=== PATIENT | male | born 1980 | race Hispanic/Latino ===

== ENCOUNTER 2021-09-10 16:49 | Emergency (ER) | payer SELFPAY ==
[2021-09-10 17:26] LABS: Urine Blood Negative (Negative); Urine Glucose Negative (Negative); Urine Protein Negative (Negative); Urine Specific Gravity 1.025 (1.005-1.030); Urine pH 5.5 (5.0-7.0)
[2021-09-10 18:29] LABS: Urine Bacteria <20 /HPF (NONE SEEN); Urine RBC <5 /HPF (NONE SEEN)
--- NOTE | 2021-09-10 19:43 | RAD REPORT ---
EXAM DESCRIPTION: US - Scrotum Testicles - 09/10/2021 7:29 pm CLINICAL HISTORY: right testicle pain Pain and swelling COMPARISON: No comparisons FINDINGS: The right testicle 3.8 x 2.6 x 2.2 cm. No intratesticular masses or evidence of testicular torsion. The left testicle 4.2 x 2.2 x 2.1 cm. There is a small hypoechoic lesion seen in the substance of the left testicle measuring 3 x 2 mm. No evidence left testicular torsion. Both epididymides are normal in size and appearance. No pathologic fluid collections. IMPRESSION: No evidence of testicular torsion. Small 3 x 2 cm hypoechoic lesion in the parenchyma of the left testicle. This lesion warrants close i nterval follow-up evaluation with sonography in 3 months.
[2021-09-10] MEDS ORDERED: NA CHLORIDE 0.9% 1,000 ML ONE (19:53)
[2021-09-10] MEDS ORDERED: KETOROLAC 30 MG/ML INJ ONE (19:53)
[2021-09-10 20:22] LABS: Absolute Lymphocytes (CBC) 1.8 K/uL (0.7-4.9); Basophils % 0.2 % (0-1.3); Hematocrit 46.1 % (39.6-49.0); Lymphocytes % 19.1 % (15.3-44.8); MPV 8.2 fL (7.6-11.3); RBC Red Blood Cell Count 5.07 M/uL (4.33-5.43)
[2021-09-10 20:47] LABS: ALT/SGPT 36 U/L (12-78); AST/SGOT 13 U/L (15-37); Albumin 3.9 g/dL (3.4-5.0); Alkaline Phosphatase 64 U/L (45-117); BUN Blood Urea Nitrogen 11 mg/dL (7-18); Bicarbonate 24 mmol/L (21-32); Bilirubin Direct 0.1 mg/dL (0-0.2); Bilirubin Total 0.6 mg/dL (0.2-1.0); Glucose Level 124 mg/dL (74-106); Lipase 65 U/L (73-393); Potassium 3.8 mmol/L (3.5-5.1); Protein, Total 7.8 g/dL (6.4-8.2); Sodium Level 141 mmol/L (136-145)
--- NOTE | 2021-09-10 21:36 | RAD REPORT ---
EXAM DESCRIPTION: CTAbdomen Pelvis W Contrast - 09/10/2021 9:20 pm CLINICAL HISTORY: Abdominal pain. ABD PAIN COMPARISON: No comparisons TECHNIQUE: Biphasic CT imaging of the abdomen and pelvis was performed with 100 ml non-ionic IV cont rast. All CT scans are performed using dose optimization technique as appropriate and may include automated exposure control or mA/KV adjustment according to patient size. FINDINGS: The lung bases are clear. The liver, spleen, pancreas, adrenal glands and kidneys are within normal limits. No bowel obstruction, free air, free fluid or abscess. The appendix is normal. No evidence of signi ficant lymphadenopathy. No suspicious bony findings. IMPRESSION: No acute intra-abdominal or pelvic finding.
--- NOTE | 2021-09-10 21:51 | ER ---
Nurse's Notes [facility] Name: Jevon Kelly Age: 41 yrs Sex: Male : 1980 Arrival Date: 09/10/2021 Time: 16:53 Bed 19 Private MD: Diagnosis: Lower abdominal pain, unspecified Presentation: 09/10 17:05 Chief complaint: Patient's son or daughter states: Wednesday they took him to the doctor tw2 and he was having pain in his stomach. they gave him pills. then they went again yesterday and they gave him two more pills. and he still doesn't feel good. he says his left arm is bothering him and he is having trouble urinating. Coronavirus screen: vomiting. Client presents with at least one sign or symptom that may indicate coronavirus-19. Standard/surgical mask placed on the client. Provider contacted for isolation considerations. Ebola Screen: Patient denies travel to an Ebola-affected area in the 21 days before illness onset. Initial Sepsis Screen: Does the patient meet any 2 criteria? No. Patient's initial sepsis screen is negative. Does the patient have a suspected source of infection? No. Patient's initial sepsis screen is negative. Risk Assessment: Do you want to hurt yourself or someone else? Patient reports no desire to harm self or others. Onset of symptoms was September 10, 2021. 17:05 Method Of Arrival: Ambulatory tw2 17:05 Acuity: CAYLA 3 tw2 Triage Assessment: 17:10 General: Appears in no apparent distress. uncomfortable, Behavior is calm, cooperative, tw2 appropriate for age. Pain: Complains of pain in abdomen. Historical: - Allergies: 17:07 olmesartan; "trouble breathing"; tw2 - Home Meds: 17:09 None [Active]; tw2 - PMHx: 17:10 None; tw2 - PSHx: 17:09 None; tw2 - Immunization history:: Client reports receiving the 2nd dose of the Covid vaccine. - Social history:: Smoking status: Patient denies any tobacco usage or history of. Screenin:22 Abuse screen: Denies threats or abuse. Nutritional screening: No deficits noted. tw2 Tuberculosis screening: No symptoms or risk factors identified. Fall Risk None identified. Assessment: 17:55 General: Appears in no apparent distress. uncomfortable, Behavior is calm, cooperative. vg1 Pain: Complains of pain in suprapubic area, right lower quadrant and left lower quadrant Pain currently is 7 out of 10 on a pain scale. Pain began a week ago. Neuro: Level of Consciousness is awake, alert, obeys commands, Oriented to person, place, time, situation. Cardiovascular: Patient's skin is warm and dry. Respiratory: Airway is patent Respiratory effort is even, unlabored. GI: Reports nausea, vomiting. : Reports burning with urination, since for about a week Pt states Right testicular swelling. EENT: No signs and/or symptoms were reported regarding the EENT system. Derm: Skin is intact, is healthy with good turgor. Musculoskeletal: Circulation, motion, and sensation intact. 17:55 Reassessment: Pt stated urinary pain has been going on for about a week. Stated saw PCP vg1 on Wednesday09/06/21 and was given Metronidazole and Cipro. Pt states went back to PCP yesterday bc pain came back worse and was given another medication. 19:50 Reassessment: No changes from previously documented assessment. Patient and/or family kc4 updated on plan of care and expected duration. Pain level reassessed. Patient is alert, oriented x 3, equal unlabored respirations, skin warm/dry/pink. General: Appears uncomfortable, well groomed, Behavior is calm, cooperative, appropriate for age, Denies fever, feeling ill, fatigue, chills. Pain: Complains of pain in suprapubic area, scrotum Pain currently is 8 out of 10 on a pain scale. at worst was 10 out of 10 on a pain scale. level that patient reports is acceptable is 2 out of 10 on a pain scale. Quality of pain is described as burning, aching, sharp, throbbing, pulsating, Pain began 2-3 days ago. Neuro: Level of Consciousness is awake, alert, obeys commands, Oriented to Reports. Cardiovascular: No deficits noted. Capillary refill < 3 seconds Patient's skin is warm and dry. Respiratory: Airway is patent Respiratory effort is even, unlabored, Respiratory pattern is regular, symmetrical. GI: No deficits noted. Abdomen is flat, Bowel sounds present X 4 quads. Reports nausea, Pain is 8 out of 10 on a pain scale. : Reports burning with urination, swollen scrotum. EENT: No signs and/or symptoms were reported regarding the EENT system. Derm: No deficits noted. No signs and/or symptoms reported regarding the dermatologic system. Skin is intact, is healthy with good turgor. Vital Signs: 17:05 BP 147 / 97; Pulse 83; Resp 17; Temp 97.8(TE); Pulse Ox 99% on R/A; Weight 99.79 kg; tw2 Pain 8/10; 19:15 BP 142 / 92; Pulse 78; Resp 18; Pulse Ox 100% on R/A; Pain 8/10; kc4 20:15 BP 135 / 82; Pulse 82; Resp 20; Temp 98.8; Pulse Ox 99% on R/A; Pain 8/10; kc4 21:15 BP 146 / 96; Pulse 80; Resp 20; Pulse Ox 99% on R/A; Pain 5/10; kc4 21:50 BP 144 / 86; Pulse 98; Resp 18; Temp 98.7(O); Pulse Ox 100% on R/A; Pain 0/10; kc4 ED Course: 16:53 Patient arrived in ED. ds1 17:07 Triage completed. tw2 17:07 Arm band placed on. tw2 17:42 Bed in low position. Call light in reach. Adult w/ patient. tw2 18:03 Francisco J Hayes PA is PHCP. cp 18:03 Emilio Marley MD is Attending Physician. cp 19:20 Hellen Bryson is Primary Nurse. kc4 19:29 US Scrotum Testicles In Process Unspecified. EDMS 19:50 Inserted saline lock: 20 gauge in right antecubital area, using aseptic technique. kc4 Blood collected. 19:56 Basic Metabolic Panel Sent. kc4 19:56 CBC with Diff Sent. kc4 19:56 Hepatic Function Sent. kc4 19:56 Lipase Sent. kc4 19:56 Urine Culture Sent. kc4 19:56 Urine Microscopic Only Sent. kc4 21:20 CT Abd/Pelvis - IV Contrast Only In Process Unspecified. EDMS 21:50 Andrew Ireland MD is Referral Physician. cp 22:24 No provider procedures requiring assistance completed. IV discontinued, intact, kc4 bleeding controlled, No redness/swelling at site. Pressure dressing applied. Administered Medications: 19:55 Drug: NS 0.9% 1000 ml Route: IV; Rate: 1 bolus; Site: right antecubital; kc4 21:55 Follow up: IV Status: Completed infusion kc4 19:56 Drug: Ketorolac 15 mg Route: IVP; Site: right antecubital; kc4 20:00 Follow up: Response: No adverse reaction; Pain is decreased kc4 Outcome: 21:51 Discharge ordered by MD. cp 22:24 Discharged to home ambulatory, with significant other. kc4 22:24 Condition: stable 22:24 Discharge instructions given to patient, significant other, Instructed on discharge instructions, follow up and referral plans. medication usage, Demonstrated understanding of instructions, follow-up care, medications. 22:31 Patient left the ED. kc4 Signatures: Dispatcher [employer] EDOK Ileana Moses ds1 Francisco J Hayes PA PA cp Wise, Tara RN RN tw2 Ivy Chinchilla RN RN vg1 Hellen Bryson kc4
--- NOTE | 2021-09-10 21:52 | EDPHYS ---
Physician Documentation [facility] Name: Jevon Kelly Age: 41 yrs Sex: Male : 1980 Arrival Date: 09/10/2021 Time: 16:53 Bed 19 Private MD: ED Physician Emilio Marley HPI: 09/10 18:35 This 41 yrs old Male presents to ER via Ambulatory with complaints of Urinary cp Problem. 18:35 The patient presents with urinary symptoms, urinary tract infection. cp 18:35 Onset: The symptoms/episode began/occurred last week. Associated signs and symptoms: cp Pertinent positives: abdominal pain, Pertinent negatives: constipation, diarrhea, dysuria, fever, vomiting. Severity of symptoms: in the emergency department the symptoms are unchanged, despite home interventions. Patient presents to ED with c/o lower abdomen pain that started last week. Patient reports being seen at local clinic and diagnosed with uti this past Wednesday. Has been taking prescribed antibiotics cipro and metronidazole and reports pain continues. Historical: - Allergies: 17:07 olmesartan; "trouble breathing"; tw2 - Home Meds: 17:09 None [Active]; tw2 - PMHx: 17:10 None; tw2 - PSHx: 17:09 None; tw2 - Immunization history:: Client reports receiving the 2nd dose of the Covid vaccine. - Social history:: Smoking status: Patient denies any tobacco usage or history of. ROS: 18:40 Constitutional: Negative for body aches, chills, fever, poor PO intake. cp 18:40 Eyes: Negative for injury, pain, redness, and discharge. cp 18:40 Cardiovascular: Negative for chest pain. 18:40 Respiratory: Negative for cough, shortness of breath, wheezing. 18:40 Abdomen/GI: Positive for of the lower abdomen, Negative for vomiting, diarrhea, constipation. 18:40 : Positive for testicular pain Negative for flank pain, penile discharge, penile pain. 18:40 Neuro: Negative for altered mental status, headache, weakness. 18:40 All other systems are negative. Exam: 18:45 Constitutional: The patient appears in no acute distress, alert, awake, non-toxic, well cp developed, well nourished, obese. 18:45 Head/Face: Normocephalic, atraumatic. cp 18:45 Eyes: Periorbital structures: appear normal, Conjunctiva: normal, no exudate, no injection, Sclera: no appreciated abnormality, Lids and lashes: appear normal, bilaterally. 18:45 ENT: External ear(s): are unremarkable, Nose: is normal, Mouth: Lips: moist, Oral mucosa: moist, Posterior pharynx: Airway: no evidence of obstruction, patent. 18:45 Chest/axilla: Inspection: normal, Palpation: is normal, no crepitus, no tenderness. 18:45 Cardiovascular: Rate: normal, Rhythm: regular. 18:45 Respiratory: the patient does not display signs of respiratory distress, Respirations: normal, no use of accessory muscles, no retractions, labored breathing, is not present, Breath sounds: are clear throughout, no decreased breath sounds, no stridor, no wheezing. 18:45 Abdomen/GI: Inspection: abdomen appears normal, Bowel sounds: active, all quadrants, Palpation: soft, in all quadrants, mild abdominal tenderness, in the suprapubic area, rebound tenderness, is not appreciated, involuntary guarding, is not appreciated. 18:45 : Male external genitalia: swelling, is not appreciated, tenderness, is not appreciated. 18:45 Skin: cellulitis, is not appreciated, no rash present. Vital Signs: 17:05 BP 147 / 97; Pulse 83; Resp 17; Temp 97.8(TE); Pulse Ox 99% on R/A; Weight 99.79 kg; tw2 Pain 8/10; 19:15 BP 142 / 92; Pulse 78; Resp 18; Pulse Ox 100% on R/A; Pain 8/10; kc4 20:15 BP 135 / 82; Pulse 82; Resp 20; Temp 98.8; Pulse Ox 99% on R/A; Pain 8/10; kc4 21:15 BP 146 / 96; Pulse 80; Resp 20; Pulse Ox 99% on R/A; Pain 5/10; kc4 21:50 BP 144 / 86; Pulse 98; Resp 18; Temp 98.7(O); Pulse Ox 100% on R/A; Pain 0/10; kc4 MDM: 18:09 Patient medically screened. cp 19:00 Differential diagnosis: nonspecific abdominal pain, appendicitis, UTI, prostatitis, cp urethritis. 21:50 Data reviewed: vital signs, nurses notes, lab test result(s), radiologic studies, CT cp scan, ultrasound. 21:50 Counseling: I had a detailed discussion with the patient and/or guardian regarding: the cp historical points, exam findings, and any diagnostic results supporting the discharge/admit diagnosis, lab results, radiology results, to return to the emergency department if symptoms worsen or persist or if there are any questions or concerns that arise at home. Response to treatment: the patient's symptoms have markedly improved after treatment, and as a result, I will discharge patient. Special discussion: Based on the patient's Hx, exam, and Dx evaluation, there is no indication for emergent surgery or inpatient Tx. It is understood by the patient/guardian that if the Sx's persist or worsen they need to return immediately for re-evaluation. 09/10 17:26 Order name: Urine Dipstick-Ancillary; Complete Time: 18:04 EDMS 09/10 21:39 Interpretation: Normal except: UESTR Trace. 09/10 18:04 Order name: Urine Microscopic Only 09/10 18:05 Order name: Urine Culture 09/10 18:29 Order name: Urine Microscopic Only; Complete Time: 18:36 EDMS 09/10 18:31 Order name: Basic Metabolic Panel; Complete Time: 21:38 cp 09/10 21:38 Interpretation: Normal except: CL 109; GLUC 124. 09/10 18:31 Order name: CBC with Diff; Complete Time: 21:38 cp 09/10 21:38 Interpretation: Normal except: INDU% 74.0. 09/10 18:31 Order name: Hepatic Function; Complete Time: 21:38 09/10 21:38 Interpretation: Normal except: AST 13; GLOB 3.9; A/G 1.0. 09/10 18:31 Order name: Lipase; Complete Time: 21:38 cp 09/10 18:31 Order name: IV Saline Lock; Complete Time: 19:56 cp 09/10 18:31 Order name: Labs collected and sent; Complete Time: 19:56 cp 09/10 18:31 Order name: US Scrotum Testicles; Complete Time: 20:22 cp 09/10 18:36 Order name: CT Abd/Pelvis - IV Contrast Only; Complete Time: 21:38 cp Administered Medications: 19:55 Drug: NS 0.9% 1000 ml Route: IV; Rate: 1 bolus; Site: right antecubital; kc4 21:55 Follow up: IV Status: Completed infusion kc4 19:56 Drug: Ketorolac 15 mg Route: IVP; Site: right antecubital; kc4 20:00 Follow up: Response: No adverse reaction; Pain is decreased kc4 Disposition Summary: 09/10/21 21:51 Discharge Ordered Location: Home cp Problem: new cp Symptoms: have improved cp Condition: Stable cp Diagnosis - Lower abdominal pain, unspecified cp Followup: cp - With: Andrew Ireland MD - When: 1 week - Reason: pain continues Discharge Instructions: - Discharge Summary Sheet cp - Abdominal Pain, Adult cp Forms: - Medication Reconciliation Form cp - Thank You Letter cp - Antibiotic Education cp - Prescription Opioid Use cp Addendum: 09/14/2021 13:56 Co-signature as Attending Physician, Emilio Marley MD I agree with the assessment and r n plan of care. Attestation: The patient's history, exam findings, diagnostics, and a summary of any interventions or procedures was reviewed in detail with Francisco J WRIGHT. Signatures: Dispatcher [employer] EDEmilio Galvan MD MD rn Page, Corey, PA PA cp Carolee Pimentel RN RN tw2 Hellen Bryson kc4
[2021-09-10 23:09] VITALS: BP 144/86; TEMP 98.7; O2SAT 100
== END 2021-09-10 22:31 | disposition home or self-care (01) ==
LOC: ER 16:49
DX: R10.30 Lower abdominal pain, unspecified (principal)
CPT/HCPCS: 36415; 74177; 76870; 80048; 80076; 81003; 81015; 83690; 85025; 87086; 87088; 96361; 96374; 99284; J7030; Q9967

== ENCOUNTER 2021-10-16 07:50 | Emergency (ER) | payer SELFPAY ==
--- OUTSIDE RECORDS SUMMARY | 2021-10-16 07:53 | XMS REPORT | Continuity of Care Document ---
:1980 Author Organization [facility] t Address [address] [place] [address] Care Team Providers Name Role Phone Pcp, Does Not Have A Primary Care Physician Darren ZAMORA Attending Clinician Unavailable Darren Zamora DO Attending Clinician Doctor Unassigned, Name Attending Clinician Unavailable DESTINY Attending Clinician Unavailable Vaccine, Rosendo Uriosteguii Attending Clinician Unavailable Fuentes VACUUM PAN OPERATOR Attending Clinician Darren ZAMORA Admitting Clinician Unavailable DESTINY Admitting Clinician Unavailable Problems Condition Condition Condition Status Onset Resolution Last Treating Co mments Source Name Details Category Date Date Treatment Clinician Date Obesity Obesity Disease Active 2015-11 Univers (BMI (BMI 1-29 ity of 30-39.9) 30-39.9) 00:00: [place] 00 [facility] Allergies, Adverse Reactions, Alerts Allergy Allergy Status Severity Reaction(s) Onset Inactive Treating Comm ents Source Name Type Date Date Clinician NO KNOWN Drug Active Univers ALLERGIE Class ity of S [facility] Social History Social Habit Start Date Stop Date Quantity Comments Source Exposure to Not sure [facility] SARS-CoV-2 (event) Medica l Branch Sex Assigned At [birth year] [facility]00 [facility] Smoking Status Start Date Stop Date Source Unknown if ever smoked [facility] Medications Ordered Filled Start Stop Current Ordering Indication Dosage Frequency Signature Comments Components Source Medication Medication Date Date Medication? Clinician (SIG) Name Name ketorolac 2020-11- No 30mg 30 mg, Unive rs (TORADOL) 1-18 11-18 Slow IV ity of injection 15:30: 14:26 Push, [place] 30 mg 00 :00 ONCE, 1 Medical dose, On Branch Manjula 10/02/21 at 0930, DONAL
[facility] approving Restricted medication : MAXIMO ZAMORARA Banks iohexol 2020-11- No [id number] 100mL 100 mL, U nivers (OMNIPAQUE 0-30 10-30 Intravenou it y of 350 21:17: 21:30 s, ONCE, 1 [place] BULK-100 00 :00 dose, On Medical mL) Sat Branch injection 09/13/21 100 mL at 1630, Routine ondansetron 2020-11- No 4mg 4 mg, Slow Univers (ZOFRAN 0-30 10-30 IV Push, ity of (PF)) 20:30: 20:25 ONCE, 1 [place] injection 4 00 :00 dose, On Medi lisset mg Sat Branch 09/13/21 at 1530, DONAL ondansetron 2020-11 Yes [id number] 4mg Take 1 Univers 4 mg tablet 0-30 tablet by ity of 00:00: mouth [place] 00 every 8 Medical (eight) Branch hours as needed for Nausea and Vomiting (N/V). dicyclomine 2020-11 Yes [id number] 10mg Take 1 Univers 10 mg 0-30 capsule by ity of capsule 00:00: mouth 4 [place] 00 (four) Medical times Branch daily. ondansetron 2020-11 Yes [id number] 4mg Take 1 Univers 4 mg tablet 0-30 tablet by ity of 00:00: mouth [place] 00 every 8 Medical (eight) Branch hours as needed for Nausea and Vomiting (N/V). dicyclomine 2020-11 Yes [id number] 10mg Take 1 Univers 10 mg 0-30 capsule by ity of capsule 00:00: mouth 4 [place] 00 (four) Medical times Branch daily. ondansetron 2020-11 Yes [id number] 4mg Take 1 Univers 4 mg tablet 0-30 tablet by ity of 00:00: mouth [place] 00 every 8 Medical (eight) Branch hours as needed for Nausea and Vomiting (N/V). dicyclomine 2020-11 Yes [id number] 10mg Take 1 Univers 10 mg 0-30 capsule by ity of capsule 00:00: mouth 4 [place] 00 (four) Medical times Branch daily. traMADOL 2015-11 Yes 50mg Take 1 Univers (ULTRAM) 50 1-29 tablet by ity of mg tablet 00:00: mouth [place] 00 every 6 Medical (six) Branch hours as needed (pain). erythromyci 2015-11 Yes .5[in_u Place 0.5 Univers n 1-29 s] Inches in ity of (ILOTYCIN) 00:00: left eye 4 [place] mg/gram 00 (four) Medical (0.5 %) times Branch ophthalmic daily. ointment Continue until you follow up with eye doctor. traMADOL 2015-11 Yes 50mg Take 1 Univers (ULTRAM) 50 1-29 tablet by ity of mg tablet 00:00: mouth [place] 00 every 6 Medical (six) Branch hours as needed (pain). erythromyci 2015-11 Yes .5[in_u Place 0.5 Univers n 1-29 s] Inches in ity of (ILOTYCIN) 00:00: left eye 4 [place] 5 mg/gram 00 (four) Medical (0.5 %) times Branch ophthalmic daily. ointment Continue until you follow up with eye doctor. traMADOL 2015-11 Yes 50mg Take 1 Univers (ULTRAM) 50 1-29 tablet by ity of mg tablet 00:00: mouth [place] 00 every 6 Medical (six) Branch hours as needed (pain). erythromyci 2015-11 Yes .5[in_u Place 0.5 Univers n 1-29 s] Inches in ity of (ILOTYCIN) 00:00: left eye 4 [place] 5 mg/gram 00 (four) Medical (0.5 %) times Branch ophthalmic daily. ointment Continue until you follow up with eye doctor. traMADOL 2015-11 Yes 50mg Take 1 Univers (ULTRAM) 50 1-29 tablet by ity of mg tablet 00:00: mouth [place] 00 every 6 Medical (six) Branch hours as needed (pain). erythromyci 2015-11 Yes .5[in_u Place 0.5 Univers n 1-29 s] Inches in ity of (ILOTYCIN) 00:00: left eye 4 [place] 5 mg/gram 00 (four) Medical (0.5 %) times Branch ophthalmic daily. ointment Continue until you follow up with eye doctor. traMADOL 2015-11 Yes 50mg Take 1 Univers (ULTRAM) 50 1-29 tablet by ity of mg tablet 00:00: mouth [place] 00 every 6 Medical (six) Branch hours as needed (pain). erythromyci 2015-11 Yes .5[in_u Place 0.5 Univers n 1-29 s] Inches in ity of (ILOTYCIN) 00:00: left eye 4 [place] 5 mg/gram 00 (four) Medical (0.5 %) times Branch ophthalmic daily. ointment Continue until you follow up with eye doctor. Immunizations Ordered Filled Immunization Date Status Comments [facility] e Immunization Name Name SARS-COV-2 COVID-19 2021-08-14 Completed Unive rsity of PFIZER VACCINE 00:00:00 [facility] SARS-COV-2 COVID-19 2021-08-14 Completed Unive rsity of PFIZER VACCINE 00:00:00 [facility] SARS-COV-2 COVID-19 2021-08-14 Completed Unive rsity of PFIZER VACCINE 00:00:00 [facility] SARS-COV-2 COVID-19 2021-08-14 Completed Unive rsity of PFIZER VACCINE 00:00:00 [facility] SARS-COV-2 COVID-19 2021-07-24 Completed Unive rsity of PFIZER VACCINE 00:00:00 [facility] SARS-COV-2 COVID-19 2021-07-24 Completed Unive rsity of PFIZER VACCINE 00:00:00 [facility] SARS-COV-2 COVID-19 2021-07-24 Completed Unive rsity of PFIZER VACCINE 00:00:00 [facility] SARS-COV-2 COVID-19 2021-07-24 Completed Unive rsity of PFIZER VACCINE 00:00:00 [facility] SARS-COV-2 COVID-19 2021-07-24 Completed Unive rsity of PFIZER VACCINE 00:00:00 [facility] Vital Signs Vital Name Observation Time Observation Value Comments Source Systolic blood 2021-10-02 15:00:00 126 mm[Hg] Univer sity of pressure [facility] Diastolic blood 2021-10-02 15:00:00 90 mm[Hg] Unive rsity of pressure [facility] Heart rate 2021-10-02 15:00:00 83 /min Universi ty of [facility] Oxygen saturation in 2021-10-02 15:00:00 95 /min University of Arterial blood by [facility] Pulse oximetry Branch Body temperature 2021-10-02 14:13:00 37.06 [facility]ly [facility] Respiratory rate 2021-10-02 14:13:00 18 /min [facility] Body weight 2021-10-02 14:13:00 99.791 kg Universi ty [facility] BMI 2021-10-02 14:13:00 32.47 kg/m2 Universi ty [facility] Systolic blood 2021-09-13 23:30:12 140 mm[Hg] Univer sity of pressure [facility] Diastolic blood 2021-09-13 23:30:12 87 mm[Hg] Unive rsity of pressure [facility] Heart rate 2021-09-13 23:30:12 70 /min Universi ty [facility] Body temperature 2021-09-13 23:30:12 37 [facility] ersity of [facility] Respiratory rate 2021-09-13 23:30:12 16 /min [facility] Oxygen saturation in 2021-09-13 23:30:12 100 /min University of Arterial blood by [facility] Pulse oximetry Branch Body weight 2021-09-13 18:55:00 99.791 kg Universi ty [facility] BMI 2021-09-13 18:55:00 32.47 kg/m2 Universi [facility] Procedures Procedure Date / Time Performed Performing Clinician Sourc e CT ABDOMEN PELVIS WO 2021-10-02 14:45:08 Ann Zamora [facility] CONTRAST [facility] Branch LIPASE 2021-10-02 14:26:00 Ann Zamora [facility] COMP. METABOLIC PANEL 2021-10-02 14:26:00 Ann Zamora [facility] ([id number]) [facility] CBC WITH DIFF 2021-10-02 14:25:00 Ann Zamora [facility] URINALYSIS 2021-10-02 14:25:00 Ann Zamora [facility] NOTICE OF PRIVACY 2021-10-02 14:05:10 Doctor Unassigned, No Univ [facility] PRACTICES Name Medical Branch CONSENT/REFUSAL FOR 2021-10-02 14:04:54 Doctor Unassigned, No Un iversity of [place] DIAGNOSIS AND Name Medical Branch TREATMENT CT ABDOMEN PELVIS W 2021-09-13 21:27:44 Florencio Dixon [facility] CONTRAST [facility] Branch URINALYSIS 2021-09-13 20:27:00 Destiny [facility] EXTRA TUBE URINE 2021-09-13 20:27:00 Destiny [facility] CULTURE [facility] Branch XR CHEST 1 VW 2021-09-13 19:33:00 Destiny [facility] LIPASE 2021-09-13 19:26:00 Destiny [facility] TROPONIN I 2021-09-13 19:26:00 Destiny [facility] COMP. METABOLIC PANEL 2021-09-13 19:26:00 Florencio Dixon [facility] ([id number]) Medical Branch CBC WITH DIFF 2021-09-13 19:26:00 Destiny [facility] CONSENT/REFUSAL FOR 2021-09-13 18:54:31 Doctor Unassigned, No Un [facility] [place] DIAGNOSIS AND Name Medical Branch TREATMENT SARS-COV-2 COVID-19 2021-08-14 15:32:18 Doctor Unassigned, No Un [facility] [place] VACCINE,0.3ML,IM Name Medical Branch (PFIZER) SARS-COV-2 COVID-19 2021-07-24 15:15:31 Doctor Unassigned, No Un [facility] [place] VACCINE,0.3ML,IM Name Medical Branch (PFIZER) Encounters Start End Encounter Admission Attending Care Care Encounter Source Date/Time Date/Time Type Type Clinicians Facility Department ID 2021-10-02 2021-10-02 Emergency X BEVERLY ZAMORA ERT [id number] Univers 08:10:00 10:54:00 ANN roberts [facility] 2021-10-02 2021-10-02 Emergency BEVERLY Zamora [id number] Univers 08:10:00 10:54:00 Ann Banks KAMLESHESTEVAN [id number] [facility] [place] [id number] [facility] 084 Branch 2021-10-02 2021-10-02 Orders Doctor SHELLEY [id number] Univers 00:00:00 00:00:00 Only Unassigned, STEPHEN [id number] ity of [place] [facility] 4.2.7.2.686 [place] as [phone] [facility] 009 Branch 2021-09-13 2021-09-13 Emergency X DESTINY, [facility] ERT [id number] Univers 13:58:00 18:32:00 FLORENCIO ity [facility] 2021-09-13 2021-09-13 Emergency Destiny, [place] [id number] Univers 13:58:00 18:32:00 [facility] [id number] it y of 4.2.7.2.686 [facility] [id number] [facility] 014 Branch 2021-08-14 2021-08-14 Imm/Inj Vaccine, [facility] [place] [id number] Univers 10:04:50 10:14:50 Visit Lupe Fuentes 350.1.13. 10 ity of [facility] 4.2.7.2.686 [facility] [id number] [facility] 225 Branch 2021-07-24 2021-07-24 Imm/Inj Vaccine, [facility] [place] [id number] Univers 10:02:59 10:12:59 Visit Lupe Fuentes 350.1.13. 10 ity of [facility] 4.2.7.2.686 [facility] [id number] [facility] 225 [place] Results Test Description Test Time Test Comments Results Result Comments Source COMP. METABOLIC PANEL ([id number]) 2021-10-02 14:57:42 Test Item Value Reference Range Interpretation Comme nts NA (test code = 7452479988) 138 mmol/L 135-145 K (test code = 9738904932) 4.2 mmol/L 3.5-5.0 CL (test code = 1051183181) 105 mmol/L 98-108 CO2 TOTAL (test code = 4599478887) 23 mmol/L 23-31 AGAP (test code = 7687936532) 2-16 BUN (test code = 6633891851) 12 mg/dL 7-23 GLUCOSE (test code = 2968256291) 111 mg/dL 70-110 H CREATININE (test code = 0.67 mg/dL 0.60-1.25 5140174516) TOTAL BILI (test code = 0.7 mg/dL 0.1-1.6 5289108400) CALCIUM (test code = 0079273358) 9.9 mg/dL 8.6-10.6 T PROTEIN (test code = 0212101116) 7.8 g/dL 6.3-8.2 ALBUMIN (test code = 5029724603) 4.5 g/dL 3.5-5.0 ALK PHOS (test code = 6020818389) 64 U/L 34-122 ALTv (test code = 1742-6) 31 U/L 5-50 AST(SGOT) (test code = 5874579074) 22 U/L 13-40 eGFR (test code = 6217294208) mL/min/1.73m2 DALE (test code = DALE) Association of Glomerular Filtration Rate (GFR) and Staging of Kidney Disease* + +-------- + ------+| GFR (mL/min/1.73 m2) ?| With Kidney Damage ?| ?Without Kidney Damage+ +-- + +| ?>90 ?| ?Stage one ?| ? Normal ?+ +------- + -------+| ?60-89 ?| ?Stage two ?| ? Decreased GFR ? + +-------- + ------+| ?30-59 ?| ?Stage three ?| ? Stage three ? + +-------- + ------+| ?15-29 ?| ?Stage four ? | ? Stage four ?+ +------- + -------+| ?<15 (or dialysis) ? ?| ?Stage five ? | ? Stage five ?+ +------- + -------+ *Each stage assumes the associated GFR level has been in effect for at least three months. ?Stages 1 to 5, with or without kidney disease, indicate chronic kidney disease. Notes: Determination of stages one and two (with eGFR >59mL/min/1.73 m2) requires estimation of kidney damage for at least three months as defined by structural or functional abnormalities of the kidney, manifested by either:Pathological abnormalities or Markers of kidney damage (including abnormalities in the composition of the blood or urine or abnormalities in imaging tests). Lab Interpretation (test code = Abnormal 48204-8) [facility]01 Test Item Value Reference Range Interpretation Comments LIPASE (test code = 9538038145) 51 U/L 0-220 Lab Interpretation (test code = Normal 40630-7) [facility] [id number] 14:38:36 Test Item Value Reference Range Interpretation Comments WBC (test code = See_Comment [Automated 2390-2) message] The sy stem which generated this result transmitted reference range : 4.20 - 10.70 10*3/?L. The reference range was not used to interpret this result as normal/abnormal . RBC (test code = See_Comment [Automated 009-8) message] The sy stem which generated this result transmitted reference range : 4.26 - 5.52 10*6/?L. The reference range was not used to interpret this result as normal/abnormal . HGB (test code = 16.2 g/dL 12.2-16.4 718-7) HCT (test code = 47.5 % 38.4-49.3 4544-3) MCV (test code = 88.8 fL 81.7-95.6 787-2) MCH (test code = 30.3 pg 26.1-32.7 785-6) MCHC (test code = 34.1 g/dL 31.2-35.0 786-4) RDW-SD (test code = 39.2 fL 38.5-51.6 43266-2) RDW-CV (test code = 12.0 % 12.1-15.4 L 788-0) PLT (test code = See_Comment [Automated 777-3) message] The sy stem which generated this result transmitted reference range : 150 - 328 10*3/ ?L. The reference r tete was not used to interpret this result as normal/abnormal . MPV (test code = 10.0 fL 9.8-13.0 30957-5) NRBC/100 WBC (test See_Comment [Automat ed code = 4588689729) message] The system which generated this result transmitted reference range : 0.0 - 10.0 /100 WBCs. The refer ence range was not u sed to interpret th is result as normal/abnormal . NRBC x10^3 (test code <0.01 See_Comment [Auto mated = 1498936067) message] The s ystem which generated this result transmitted reference range : 10*3/?L. The reference range was not used to interpret this result as normal/abnormal . GRAN MAT (NEUT) % 74.3 % (test code = 770-8) IMM GRAN % (test code 0.30 % = 7850705587) LYMPH % (test code = 18.9 % 736-9) MONO % (test code = 5.8 % 5905-5) EOS % (test code = 0.3 % 713-8) BASO % (test code = 0.4 % 706-2) GRAN MAT x10^3(ANC) 5.38 10*3/uL 1.99-6.95 (test code = 4400129118) IMM GRAN x10^3 (test <0.03 0.00-0.06 code = 0015081332) LYMPH x10^3 (test code 1.37 10*3/uL 1.09-3.23 = 731-0) MONO x10^3 (test code 0.42 10*3/uL 0.36-1.02 = 742-7) EOS x10^3 (test code = <0.03 0.06-0.53 L 711-2) BASO x10^3 (test code 0.03 10*3/uL 0.01-0.09 = 704-7) Lab Interpretation Abnormal (test code = 33407-0) [facility] [id number] 20:13:28 Test Item Value Reference Interpretation Comments Range TROPONIN I (test 0.003 ng/mL See_Comment [Automated code = 9822916924) message] The system which generated this result transmitted reference range : <=0.034. The reference range was not used to interpret this result as normal/abnormal . ADLE (test code = Reference (Normal) DALE) Range (defined by the 99th percentile reference limit): <= 0.034 ng/mL Note: Cardiac troponin begins to rise 3-4 hours after the onset of ischemia. Repeat in 4-6 hours if the sample was drawn within 3-4 hours of the onset of the symptom and found normal. Diagnosis of myocardial injury is made with acute changes in cTn concentrations with at least one serial sample above the 99th percentile upper reference limit (URL), taken together with the patient's clinical presentation. Biotin has been reported to cause a negative bias, interpret results relative to patient's use of biotin. Lab Interpretation Normal (test code = 96752-4) [facility]. METABOLIC PANEL (74451)2021-09-13 20:01:48 Test Item Value Reference Range Interpretation Comments NA (test code = 136 mmol/L 135-145 5197003997) K (test code = 4.4 mmol/L 3.5-5.0 6877157817) CL (test code = 105 mmol/L 98-108 7373243084) CO2 TOTAL (test code = 21 mmol/L 23-31 L 5946702971) AGAP (test code = 2-16 9869535166) BUN (test code = 12 mg/dL 7-23 8336676592) GLUCOSE (test code = 108 mg/dL 70-110 0567551298) CREATININE (test code = 0.84 mg/dL 0.60-1.25 2500351979) TOTAL BILI (test code = 0.5 mg/dL 0.1-1.1 5230799635) CALCIUM (test code = 9.6 mg/dL 8.6-10.6 9231124068) T PROTEIN (test code = 7.7 g/dL 6.3-8.2 7508129336) ALBUMIN (test code = 4.6 g/dL 3.5-5.0 6754923893) ALK PHOS (test code = 59 U/L 34-122 5744775200) ALTv (test code = 27 U/L 5-50 1742-6) AST(SGOT) (test code = 24 U/L 13-40 2556896121) eGFR (test code = mL/min/1.73m2 0076583694) DALE (test code = DALE) Association of Glomerular Filtration Rate (GFR) and Staging of Kidney Disease* + --+ --+ ------+| GFR (mL/min/1.73 m2) ?| With Kidney Damage ?| ?Without Kidney Damage+ --------+ --------+ +| ?>90 ?| ?Stage one ?| ? Normal ?+ ---+ ---+ -------+| ?60-89 ?| ?Stage two ?| ? Decreased GFR ? + --+ --+ ------+| ?30-59 ?| ?Stage three ?| ? Stage three ? + --+ --+ ------+| ?15-29 ?| ?Stage four ? | ? Stage four ?+ ---+ ---+ -------+| ?<15 (or dialysis) ? ?| ?Stage five ? | ? Stage five ?+ ---+ ---+ -------+ *Each stage assumes the associated GFR level has been in effect for at least three months. ?Stages 1 to 5, with or without kidney disease, indicate chronic kidney disease. Notes: Determination of stages one and two (with eGFR >59mL/min/1.73 m2) requires estimation of kidney damage for at least three months as defined by structural or functional abnormalities of the kidney, manifested by either:Pathological abnormalities or Markers of kidney damage (including abnormalities in the composition of the blood or urine or abnormalities in imaging tests). Lab Interpretation Abnormal (test code = 45384-8) [facility] 20:01:48 Test Item Value Reference Range Interpretation Comments LIPASE (test code = 0842227030) 78 U/L 0-220 Lab Interpretation (test code = Normal 67231-3) [facility] WITH [id number] 19:33:44 Test Item Value Reference Range Interpretation Comments WBC (test code = See_Comment [Automated 9464-2) message] The sy stem which generated this result transmitted reference range : 4.20 - 10.70 10*3/?L. The reference range was not used to interpret this result as normal/abnormal . RBC (test code = See_Comment [Automated 789-8) message] The sy stem which generated this result transmitted reference range : 4.26 - 5.52 10*6/?L. The reference range was not used to interpret this result as normal/abnormal . HGB (test code = 16.7 g/dL 12.2-16.4 H 718-7) HCT (test code = 49.2 % 38.4-49.3 4544-3) MCV (test code = 89.5 fL 81.7-95.6 787-2) MCH (test code = 30.4 pg 26.1-32.7 785-6) MCHC (test code = 33.9 g/dL 31.2-35.0 786-4) RDW-SD (test code = 40.7 fL 38.5-51.6 22123-7) RDW-CV (test code = 12.4 % 12.1-15.4 788-0) PLT (test code = See_Comment [Automated 777-3) message] The sy stem which generated this result transmitted reference range : 150 - 328 10*3/ ?L. The reference r tete was not used to interpret this result as normal/abnormal . MPV (test code = 10.0 fL 9.8-13.0 85246-2) NRBC/100 WBC (test See_Comment [Automat ed code = 6149956220) message] The system which generated this result transmitted reference range : 0.0 - 10.0 /100 WBCs. The refer ence range was not u sed to interpret th is result as normal/abnormal . NRBC x10^3 (test code <0.01 See_Comment [Auto mated = 0906017305) message] The s ystem which generated this result transmitted reference range : 10*3/?L. The reference range was not used to interpret this result as normal/abnormal . GRAN MAT (NEUT) % 77.9 % (test code = 770-8) IMM GRAN % (test code 0.20 % = 1774599753) LYMPH % (test code = 14.1 % 736-9) MONO % (test code = 7.3 % 5905-5) EOS % (test code = 0.4 % 713-8) BASO % (test code = 0.1 % 706-2) GRAN MAT x10^3(ANC) 7.09 10*3/uL 1.99-6.95 H (test code = 3271669337) IMM GRAN x10^3 (test <0.03 0.00-0.06 code = 6813018049) LYMPH x10^3 (test code 1.28 10*3/uL 1.09-3.23 = 731-0) MONO x10^3 (test code 0.66 10*3/uL 0.36-1.02 = 742-7) EOS x10^3 (test code = 0.04 10*3/uL 0.06-0.53 L 711-2) BASO x10^3 (test code <0.03 0.01-0.09 = 704-7) Lab Interpretation Abnormal (test code = 74977-7) [facility]"
[2021-10-16] MEDS ORDERED: IBUPROFEN 400 MG TAB ONE (08:33)
[2021-10-16] MEDS ORDERED: CYCLOBENZAPRINE 10 MG TAB ONE (08:33)
--- NOTE | 2021-10-16 09:20 | RAD REPORT ---
EXAM DESCRIPTION: RAD - Chest Pa And Lat (2 Views) - 10/16/2021 8:58 am CLINICAL HISTORY: back pain;Cough COMPARISON: None TECHNIQUE: Frontal and lateral views of the chest were obtained. FINDINGS: The lungs are underinflated accentuating the interstitial pattern. No dense consolidation is seen. Minimal interstitial edema or infiltrate pattern could be masked in this setting. Heart size is normal and central vasculature is within normal limits. No pleural effusion or pneu mothorax seen. No acute bony finding noted. No aortic abnormality. IMPRESSION: Limited shallow inspiration exam with no acute cardiopulmonary finding. Mild edema or infiltrate could be masked by the low lung volume affects.
--- NOTE | 2021-10-16 09:21 | RAD REPORT ---
EXAM DESCRIPTION: RAD - Thoracic Spine Ap/Lat - 10/16/2021 8:58 am CLINICAL HISTORY: PAIN COMPARISON: No comparisons FINDINGS: AP & lateral views of the thoracic spine were obtained. Thoracic bodies are normal in height and alignment. Slight right convex curvature believed to be posi tioning artifact. No paraspinal mass. There are no acute or destructive bony processes seen. No disc space narrowing. IMPRESSION: No fracture or acute thoracic spine finding identifiable.
--- NOTE | 2021-10-16 09:56 | EDPHYS ---
Physician Documentation [facility] Name: Jevon Kelly Age: 41 yrs Sex: Male : 1980 Arrival Date: 10/16/2021 Time: 07:52 Bed 14 Private MD: VIK TSANG ED Physician Dickson Wayne HPI: 10/16 09:37 This 41 yrs old Male presents to ER via Ambulatory with complaints of Back kdr Pain. 09:37 The patient presents with pain that is acute, with no known mechanism of injury. The kdr symptoms are located in the Thoracic pain. Onset: The symptoms/episode began/occurred gradually, 4 day(s) ago. The pain does not radiate. Associated signs and symptoms: Pertinent positives: none Pertinent negatives: abdominal pain, chest pain, constipation, dysuria, vomiting, weakness. The problem was sustained from unknown cause. Modifying factors: The patient symptoms are alleviated by nothing, the patient symptoms are aggravated by nothing. Severity of symptoms: At their worst the symptoms were mild. The patient has not experienced similar symptoms in the past. The patient has not recently seen a physician. Historical: - Allergies: 08:08 No Known Allergies; jl7 - Home Meds: 08:08 supposed to take HTN meds but they 'alter' me [Active]; jl7 - PMHx: 08:08 Hypertensive disorder; jl7 - PSHx: 08:08 None; jl7 - Immunization history:: Adult Immunizations up to date, Client reports receiving the 2nd dose of the Covid vaccine, Pfizer. - Social history:: Smoking status: Patient denies any tobacco usage or history of. ROS: 09:37 Constitutional: Negative for fever, chills, and weight loss, Eyes: Negative for injury, kdr pain, redness, and discharge, Neck: Negative for injury, pain, and swelling, Cardiovascular: Negative for chest pain, palpitations, and edema, Respiratory: Negative for shortness of breath, cough, wheezing, and pleuritic chest pain, Abdomen/GI: Negative for abdominal pain, nausea, vomiting, diarrhea, and constipation, : Negative for injury, bleeding, discharge, and swelling, MS/Extremity: Negative for injury and deformity, Skin: Negative for injury, rash, and discoloration, Neuro: Negative for headache, weakness, numbness, tingling, and seizure activity. Psych: Negative for depression, anxiety, suicide ideation, homicidal ideation, and hallucinations, Allergy/Immunology: Negative for hives, rash, and allergies, Endocrine: Negative for neck swelling, polydipsia, polyuria, polyphagia, and marked weight changes, Hematologic/Lymphatic: Negative for swollen nodes, abnormal bleeding, and unusual bruising. 09:37 Back: Positive for pain at rest, Negative for injury or acute deformity, decreased range of motion, radiated pain. Exam: 09:37 Constitutional: This is a well developed, well nourished patient who is awake, alert, kdr and in no acute distress. Head/Face: Normocephalic, atraumatic. Eyes: Pupils equal round and reactive to light, extra-ocular motions intact. Lids and lashes normal. Conjunctiva and sclera are non-icteric and not injected. Cornea within normal limits. Periorbital areas with no swelling, redness, or edema. Neck: Trachea midline, no thyromegaly or masses palpated, and no cervical lymphadenopathy. Supple, full range of motion without nuchal rigidity, or vertebral point tenderness. No Meningismus. Chest/axilla: Normal chest wall appearance and motion. Nontender with no deformity. No lesions are appreciated. Cardiovascular: Regular rate and rhythm with a normal S1 and S2. No gallops, murmurs, or rubs. Normal PMI, no JVD. No pulse deficits. Respiratory: Lungs have equal breath sounds bilaterally, clear to auscultation and percussion. No rales, rhonchi or wheezes noted. No increased work of breathing, no retractions or nasal flaring. Abdomen/GI: Soft, non-tender, with normal bowel sounds. No distension or tympany. No guarding or rebound. No evidence of tenderness throughout. Back: No spinal tenderness. No costovertebral tenderness. Full range of motion. Skin: Warm, dry with normal turgor. Normal color with no rashes, no lesions, and no evidence of cellulitis. MS/ Extremity: Pulses equal, no cyanosis. Neurovascular intact. Full, normal range of motion. Neuro: Awake and alert, GCS 15, oriented to person, place, time, and situation. Cranial nerves II-XII grossly intact. Motor strength 5/5 in all extremities. Sensory grossly intact. Cerebellar exam normal. Normal gait. Psych: Awake, alert, with orientation to person, place and time. Behavior, mood, and affect are within normal limits. Vital Signs: 07:55 BP 140 / 97; Pulse 73; Resp 15; Temp 97.4; Pulse Ox 98% ; 7 08:52 BP 136 / 88; Pulse 74; Resp 17; Pulse Ox 100% ; 6 MDM: 09:37 Data reviewed: vital signs, nurses notes, lab test result(s), radiologic studies. kdr Counseling: I had a detailed discussion with the patient and/or guardian regarding: the historical points, exam findings, and any diagnostic results supporting the discharge/admit diagnosis, lab results, radiology results, the need for outpatient follow up. 09:55 Patient medically screened. kdr 10/16 08:26 Order name: Chest Pa And Lat (2 Views) XRAY; Complete Time: 09:48 kdr 10/16 08:26 Order name: Spine Thoracic Ap/Lat XRAY; Complete Time: 09:48 kdr Administered Medications: 08:35 Drug: Flexeril (cyclobenzaprine) 10 mg Route: PO; [facility] 08:35 Drug: Ibuprofen 800 mg Route: PO; [facility] Disposition Summary: 10/16/21 09:55 Discharge Ordered Location: Home kdr Problem: new kdr Symptoms: have improved kdr Condition: Stable kdr Diagnosis - Posterior thorax pain, cough kdr Followup: kdr - With: VIK TSANG - When: 2 - 3 days - Reason: If symptoms return, Further diagnostic work-up, Recheck today's complaints, Continuance of care, Re-evaluation by your physician Discharge Instructions: - Discharge Summary Sheet kdr - Acute Back Pain, Adult kdr Forms: - Medication Reconciliation Form kdr - Thank You Letter kdr - Antibiotic Education kdr - Prescription Opioid Use kdr Prescriptions: - methocarbamol 750 mg Oral tablet - take 1 tablet by ORAL route 4 times per day As needed; 20 tablet; Refills: 0, kdr Product Selection Permitted - Ibuprofen 800 mg Oral Tablet - take 1 tablet by ORAL route every 8 hours As needed take with food; 30 tablet; kdr Refills: 0, Product Selection Permitted Signatures: Dispatcher [employer] Dickson Zhao MD MD kdr Amandeep Kapoor RN RN jl7 Rosa M Mondragon RN RN 6 Corrections: (The following items were deleted from the chart) 08:10 08:08 Allergies: olmesartan; "trouble breathing"; jl7 jl7 08:10 08:08 Home Meds: None; jl7 jl7 08: 08:08 PMHx: None; jl7 jl7
--- NOTE | 2021-10-16 09:56 | ER ---
Nurse's Notes [facility] Name: Jevon Kelly Age: 41 yrs Sex: Male : 1980 Arrival Date: 10/16/2021 Time: 07:52 Bed 14 Private MD: VIK TSANG Diagnosis: Posterior thorax pain, cough Presentation: 10/16 07:55 Chief complaint: [employer] lab[employer] # [id number]: Pain to upper back, both sides x 4 jl7 days, denies trauma, stabbing pain that comes and goes. Recently treated for UTI but denies flank pain, denies abdominal pain, denies urinary symtpoms. Coronavirus screen: At this time, the client does not indicate any symptoms associated with coronavirus-19. Ebola Screen: No symptoms or risks identified at this time. Initial Sepsis Screen: Does the patient meet any 2 criteria? No. Patient's initial sepsis screen is negative. Does the patient have a suspected source of infection? No. Patient's initial sepsis screen is negative. Risk Assessment: Do you want to hurt yourself or someone else? Patient reports no desire to harm self or others. Onset of symptoms was October 13, 2021. Care prior to arrival: None. 07:55 Method Of Arrival: Ambulatory jl7 07:55 Acuity: CAYLA 4 jl7 Triage Assessment: 08:08 General: Appears in no apparent distress. uncomfortable, Behavior is calm, cooperative, jl7 appropriate for age. Pain: Complains of pain in thoracic area Pain does not radiate. Pain currently is 6 out of 10 on a pain scale. Quality of pain is described as stabbing, Pain began x 4 days Is intermittent. Musculoskeletal: Range of motion: intact in all extremities. Historical: - Allergies: 08:08 No Known Allergies; jl7 - Home Meds: 08:08 supposed to take HTN meds but they 'alter' me [Active]; jl7 - PMHx: 08:08 Hypertensive disorder; jl7 - PSHx: 08:08 None; jl7 - Immunization history:: Adult Immunizations up to date, Client reports receiving the 2nd dose of the Covid vaccine, Pfizer. - Social history:: Smoking status: Patient denies any tobacco usage or history of. Screenin:35 Abuse screen: Denies threats or abuse. Nutritional screening: No deficits noted. jh6 Tuberculosis screening: No symptoms or risk factors identified. Fall Risk None identified. Assessment: 08:35 General: Appears in no apparent distress. Behavior is calm, cooperative. jh6 08:35 Pain: Complains of pain in left subscapular area, right subscapular area and thoracic jh6 area Pain currently is 8 out of 10 on a pain scale. Quality of pain is described as sharp, shooting, Pain began 1 day ago. Aggravated by increased activity. Neuro: No deficits noted. 09:08 Reassessment: No changes from previously documented assessment. jh6 Vital Signs: 07:55 BP 140 / 97; Pulse 73; Resp 15; Temp 97.4; Pulse Ox 98% ; jl7 08:52 BP 136 / 88; Pulse 74; Resp 17; Pulse Ox 100% ; 6 ED Course: 07:52 Patient arrived in ED. am2 07:52 VIK TSANG is Private Physician. am2 08:05 Dickson Wayne MD is Attending Physician. kdr 08:08 Triage completed. jl7 08:08 Arm band placed on right wrist. jl7 08:31 Rosa M Mondragon, PAUL is Primary Nurse. jh6 08:43 Patient moved to radiology. jh6 08:54 Call light in reach. Side rails up X 1. jh6 08:58 Chest Pa And Lat (2 Views) XRAY In Process Unspecified. EDMS 08:58 Spine Thoracic Ap/Lat XRAY In Process Unspecified. EDMS 09:08 Awaiting for x-ray. jh6 09:54 VIK TSANG is Referral Physician. kdr Administered Medications: 08:35 Drug: Flexeril (cyclobenzaprine) 10 mg Route: PO; jh6 08:35 Drug: Ibuprofen 800 mg Route: PO; 6 Outcome: 09:55 Discharge ordered by . kdr 10:14 Patient left the ED. em1 Signatures: Dispatcher [employer] EDMS Dickson Wayne MD MD kdr Cristiano Feliciano em1 Amandeep Kapoor RN RN jl7 Fe Issa am2 Rosa M Mondragon, PAUL RN 6 Corrections: (The following items were deleted from the chart) 08:10 08:08 Allergies: olmesartan; "trouble breathing"; ray jlJosué 08:10 08:08 Home Meds: None; jl7 jl7 08:10 08:08 PMHx: None; jl7 jl7
[2021-10-16 10:19] VITALS: TEMP 97.4
[2021-10-16 10:21] VITALS: BP 136/88; O2SAT 100
== END 2021-10-16 10:14 | disposition home or self-care (01) ==
LOC: ER 07:50
DX: R07.89 Other chest pain (principal); R05.9 Cough, unspecified; I10 Essential (primary) hypertension
CPT/HCPCS: 71046; 72070; 99283

== ENCOUNTER 2022-01-31 19:02 | Emergency (ER) | payer SELFPAY ==
--- OUTSIDE RECORDS SUMMARY | 2022-01-31 19:16 | XMS REPORT | Continuity of Care Document ---
:1980 Author Organization [facility] t Address 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 Attending Clinician Darren ZAMORA Admitting Clinician Unavailable DESTINY Admitting Clinician Unavailable Problems Condition Condition Condition Status Onset Resolution Last Treating Co mments Source Name Details Category Date Date Treatment Clinician Date Obesity Obesity Disease Active 2015-11 Univers (BMI (BMI 1-29 ity of 30-39.9) 30-39.9) 00:00: [place] 00 [facility] Allergies, Adverse Reactions, Alerts Allergy Allergy Status Severity Reaction(s) Onset Inactive Treating Comm ents Source Name Type Date Date Clinician NO KNOWN Drug Active Univers ALLERGIE Class ity of [facility] Social History Social Habit Start Date Stop Date Quantity Comments Source Exposure to Not sure [facility] SARS-CoV-2 (event) Medica l Branch Sex Assigned At [birth year] [facility] 00:00:00 00:00:00 Medical Branch Smoking Status Start Date Stop Date Source Unknown if ever smoked [facility] Medications Ordered Filled Start Stop Current Ordering Indication Dosage Frequency Signature Comments Components Source Medication Medication Date Date Medication? Clinician (SIG) Name Name ketorolac 2020-11- No 30mg 30 mg, Unive rs (TORADOL) 12-02 Slow IV ity of injection 15:30: 14:26 Push, [place] 30 mg 00 :00 ONCE, 1 Medical dose, On Branch Manjula 10/02/21 at 0930, DONAL
Fa culty member approving Restricted medication : ANN ZAMORA iohexol 2020-11- No [id number] 100mL 100 mL, U nivers (OMNIPAQUE 0-30 10-30 Intravenou it y of 350 21:17: 21:30 s, ONCE, 1 [place] BULK-100 00 :00 dose, On Medical mL) [facility] injection 09/13/21 100 mL at 1630, Routine ondansetron 2020-11- No 4mg 4 mg, Slow Univers (ZOFRAN 0-30 10-30 IV Push, ity of (PF)) 20:30: 20:25 ONCE, 1 [place] injection 4 00 :00 dose, On Medi lisset mg Sat Branch 09/13/21 at 1530, DONAL ondansetron 2020-11 Yes [id number] 4mg Take 1 Univers 4 mg tablet 0-30 tablet by ity of 00:00: mouth [place] 00 every 8 Medical (eight) Branch hours as needed for Nausea and Vomiting (N/V). dicyclomine 2020-11 Yes [id number] 10mg Take 1 Univers 10 mg 0-30 capsule by ity of capsule 00:00: mouth 4 [place] [address] (four) Medical times Branch daily. ondansetron 2020-11 Yes [id number] 4mg Take 1 Univers 4 mg tablet 0-30 tablet by ity of 00:00: mouth [place] 00 every 8 Medical (eight) Branch hours as needed for Nausea and Vomiting (N/V). dicyclomine 2020-11 Yes [id number] 10mg Take 1 Univers 10 mg 0-30 capsule by ity of capsule 00:00: mouth 4 [place] 00 (four) Medical times Branch daily. ondansetron 2020-11 Yes [id number] 4mg Take 1 Univers 4 mg tablet 0-30 tablet by ity of 00:00: mouth [place] 00 every 8 Medical (eight) Branch hours as needed for Nausea and Vomiting (N/V). dicyclomine 2020-11 Yes [id number] 10mg Take 1 Univers 10 mg 0-30 [...] Immunizations Ordered Filled Immunization Date Status Comments [facility] e Immunization Name Name SARS-COV-2 COVID-19 2021-08-14 Completed Unive rsity of PFIZER VACCINE 00:00:00 [facility] SARS-COV-2 COVID-19 2021-08-14 Completed Unive rsity of PFIZER VACCINE 00:00:00 [facility] SARS-COV-2 COVID-19 2021-08-14 Completed Unive rsity of PFIZER VACCINE 00:00:00 [facility] SARS-COV-2 COVID-19 2021-08-14 Completed Unive rsity of PFIZER VACCINE 00:00:00 [facility] SARS-COV-2 COVID-19 2021-07-24 Completed Unive rsity of PFIZER VACCINE 00:00:00 [facility] SARS-COV-2 COVID-19 2021-07-24 Completed Unive rsity of PFIZER VACCINE 00:00:00 [facility] SARS-COV-2 COVID-19 2021-07-24 Completed Unive rsity of PFIZER VACCINE 00:00:00 [facility] SARS-COV-2 COVID-19 2021-07-24 Completed Unive rsity of PFIZER VACCINE 00:00:00 [facility] SARS-COV-2 COVID-19 2021-07-24 Completed Unive rsity of PFIZER VACCINE 00:00:00 [facility] Vital Signs Vital Name Observation Time Observation Value Comments Source Systolic blood 2021-10-02 15:00:00 126 mm[Hg] Univer sity of pressure [facility] Diastolic blood 2021-10-02 15:00:00 90 mm[Hg] Unive rsity of pressure [facility] Heart rate 2021-10-02 15:00:00 83 /min Universi ty of [facility] Oxygen saturation in 2021-10-02 15:00:00 95 /min University of Arterial blood by [facility] Pulse oximetry Branch Body temperature 2021-10-02 14:13:00 37.06 Ashly [facility] ersity of [facility] Respiratory rate 2021-10-02 14:13:00 18 /min [facility] ersity of [facility] Body weight 2021-10-02 14:13:00 99.791 kg Universi ty of [facility] BMI 2021-10-02 14:13:00 32.47 kg/m2 Universi ty of [facility] Systolic blood 2021-09-13 23:30:12 140 mm[Hg] Univer sity of pressure [facility] Diastolic blood 2021-09-13 23:30:12 87 mm[Hg] Unive rsity of pressure [facility] Heart rate 2021-09-13 23:30:12 70 /min Universi ty of [facility] Body temperature 2021-09-13 23:30:12 37 Ashly [facility] ersity of [facility] Respiratory rate 2021-09-13 23:30:12 16 /min [facility] Oxygen saturation in 2021-09-13 23:30:12 100 /min University of Arterial blood by [facility] Pulse oximetry Branch Body weight 2021-09-13 18:55:00 99.791 kg Universi ty of [facility] BMI 2021-09-13 18:55:00 32.47 kg/m2 Universi ty [facility] Procedures Procedure Date / Time Performed Performing Clinician Rani e CT ABDOMEN PELVIS WO 2021-10-02 14:45:08 Ann Zamora [facility] ers[facility] Branch LIPASE 2021-10-02 14:26:00 Ann Zamora [facility] y [facility] COMP. METABOLIC PANEL 2021-10-02 14:26:00 Ann Zamora [facility] ([id number]) Medical Branch CBC WITH DIFF 2021-10-02 14:25:00 Ann Zamora [facility] URINALYSIS 2021-10-02 14:25:00 Ann Zamora [facility] NOTICE OF PRIVACY 2021-10-02 14:05:10 Doctor Unassigned, No Univ [facility] PRACTICES Name Medical Branch CONSENT/REFUSAL FOR 2021-10-02 14:04:54 Doctor Unassigned, No Un iversity of [place] DIAGNOSIS AND Name Medical Branch TREATMENT CT ABDOMEN PELVIS W 2021-09-13 21:27:44 Florencio Dixon [facility] CONTRAST [facility] Branch URINALYSIS 2021-09-13 20:27:00 Destiny [facility] EXTRA TUBE URINE 2021-09-13 20:27:00 Destiny [facility] CULTURE [facility] Branch XR CHEST 1 VW 2021-09-13 19:33:00 Destiny [facility] LIPASE 2021-09-13 19:26:00 Destiny [facility] TROPONIN I 2021-09-13 19:26:00 Destiny [facility] COMP. METABOLIC PANEL 2021-09-13 19:26:00 Florencio Dixon [facility] ([id number]) Medical Branch CBC WITH DIFF 2021-09-13 19:26:00 Destiny [facility] CONSENT/REFUSAL FOR 2021-09-13 18:54:31 Doctor Unassigned, No Un iversity of [place] DIAGNOSIS AND Name Medical Branch TREATMENT SARS-COV-2 COVID-19 2021-08-14 15:32:18 Doctor Unassigned, No Un iversity of [place] VACCINE,0.3ML,IM Name Medical Branch (PFIZER) SARS-COV-2 COVID-19 2021-07-24 15:15:31 Doctor Unassigned, No Un iversity of [place] VACCINE,0.3ML,IM Name Medical Branch (PFIZER) Encounters Start End Encounter Admission Attending Care Care Encounter Source Date/Time Date/Time Type Type Clinicians Facility Department ID 2021-12-18 Outpatient [facility] [id number] [facility] [address] 07[facility]59[facility] 2021-12-18 2021-12-18 ambulatory [facility] [id number] 2021-10-02 2021-10-02 Emergency X NOAH [facility] ERT [id number] Univers 08:10:00 10:54:00 ANN [facility] [facility] 2021-10-02 2021-10-02 [facility] [id number] Univers 08:10:00 10:54:00 Ann Darren GONG [id number] ity [place] [phone] [facility] 084 Branch 2021-10-02 2021-10-02 Orders Doctor SHELLEY [id number] Univers 00:00:00 00:00:00 Only Unassigned, STEPHEN [id number] ity of [place] [facility] 4.2.7.2.686 [place] as [id number] [facility] 009 Branch 2021-09-13 2021-09-13 Emergency X DESTINY, [facility] ERT [id number] Univers 13:58:00 18:32:00 [facility] 2021-09-13 2021-09-13 Emergency Destiny, TRAU[place] [id number] Univers 13:58:00 18:32:00 [facility] [id number] [place] [id number] [facility] 014 Branch 2021-08-14 2021-08-14 Imm/Inj Vaccine, [facility] [place] [id number] Univers 10:04:50 10:14:50 Visit Lupe Fuentes 350.1.13. 10 ity of [facility] 4[facility]2.7.2.686 [facility] [id number] [facility] 225 Branch 2021-07-24 2021-07-24 Imm/Inj Vaccine, [facility] [place] [id number] Univers 10:02:59 10:12:59 Visit Lupe Fuentes 350.1.13. 10 ity of Pediatric 4.2.7.2.686 [facility] [phone] [facility] 225 Branch Results Test Description Test Time Test Comments Results Result Comments Source COMP. METABOLIC PANEL (28178) 2021-10-02 14:57:42 Test Item Value Reference Range Interpretation Comme nts NA (test code = 0515365179) 138 mmol/L 135-145 K (test code = 1503394749) 4.2 mmol/L 3.5-5.0 CL (test code = 8406662324) 105 mmol/L 98-108 CO2 TOTAL (test code = 4581409258) 23 mmol/L 23-31 AGAP (test code = 2035281783) 2-16 BUN (test code = 4697100134) 12 mg/dL 7-23 GLUCOSE (test code = 4673559851) 111 mg/dL 70-110 H CREATININE (test code = 0.67 mg/dL 0.60-1.25 5050816167) TOTAL BILI (test code = 0.7 mg/dL 0.1-1.9 9095565237) CALCIUM (test code = 4638329163) 9.9 mg/dL 8.6-10.6 T PROTEIN (test code = 7573618300) 7.8 g/dL 6.3-8.2 ALBUMIN (test code = 9968871630) 4.5 g/dL 3.5-5.0 ALK PHOS (test code = 7470466591) 64 U/L 34-122 ALTv (test code = 1742-6) 31 U/L 5-50 AST(SGOT) (test code = 1081574562) 22 U/L 13-40 eGFR (test code = 2763978831) mL/min/1.73m2 DALE (test code = DALE) Association [...] tests). Lab Interpretation (test code = Abnormal 92569-1) [facility] 14:57:01 Test Item Value Reference Range Interpretation Comments LIPASE (test code = 5751236544) 51 U/L 0-220 Lab Interpretation (test code = Normal 80567-0) [facility] WITH [id number] 14:38:36 Test Item Value Reference Range Interpretation Comments WBC (test code = See_Comment [Automated 2127-2) message] The sy stem which generated this result transmitted reference range : 4.20 - 10.70 10*3/?L. The reference range was not used to interpret this result as normal/abnormal . RBC (test code = See_Comment [Automated 191-9) message] The sy stem which generated this [...] RDW-SD (test code = 39.2 fL 38.5-51.6 22595-4) RDW-CV (test code = 12.0 % 12.1-15.4 L 788-0) PLT (test code = See_Comment [Automated 777-3) message] The sy stem which generated this result transmitted reference range : 150 - 328 10*3/ ?L. The reference r tete was not used to interpret this result as normal/abnormal . MPV (test code = 10.0 fL 9.8-13.0 55692-4) NRBC/100 WBC (test See_Comment [Automat ed code = 6415629961) message] The system which generated this result transmitted reference range : 0.0 - 10.0 /100 WBCs. The refer ence range was not u sed to interpret th is result as normal/abnormal . NRBC x10^3 (test code <0.01 See_Comment [Auto mated = 8455031731) message] The s ystem which generated this result transmitted reference range : 10*3/?L. The reference range was not used to interpret this result as normal/abnormal . GRAN MAT (NEUT) % 74.3 % (test code = 770-8) IMM GRAN % (test code 0.30 % = 4127438962) LYMPH % (test code = 18.9 % 736-9) MONO % (test code = 5.8 % 5905-5) EOS % (test code = 0.3 % 713-8) BASO % (test code = 0.4 % 706-2) GRAN MAT x10^3(ANC) 5.38 10*3/uL 1.99-6.95 (test code = 1577870553) IMM GRAN x10^3 (test <0.03 0.00-0.06 code = 2892292424) LYMPH x10^3 (test code 1.37 10*3/uL 1.09-3.23 = 731-0) MONO x10^3 (test code 0.42 10*3/uL 0.36-1.02 = 742-7) EOS x10^3 (test code = <0.03 0.06-0.53 L 711-2) BASO x10^3 (test code 0.03 10*3/uL 0.01-0.09 = 704-7) Lab Interpretation Abnormal (test code = 79093-5) [facility] [id number] 20:13:28 Test Item Value Reference Interpretation Comments Range TROPONIN I (test 0.003 ng/mL See_Comment [Automated code = 5477521099) message] The system which generated this result transmitted reference range : <=0.034. The reference range was not used to interpret this result as normal/abnormal . DALE (test code = Reference (Normal) DALE) Range [...] biotin. Lab Interpretation Normal (test code = 21085-3) [facility] PAN[facility] (57641)2021-09-13 20:01:48 Test Item Value Reference Range Interpretation Comments NA (test code = 136 mmol/L 135-145 9841404001) K (test code = 4.4 mmol/L 3.5-5.0 3415240901) CL (test code = 105 mmol/L 98-108 5448844097) CO2 TOTAL (test code = 21 mmol/L 23-31 L 6978515669) AGAP (test code = 2-16 1752436330) BUN (test code = 12 mg/dL 7-23 9116311139) GLUCOSE (test code = 108 mg/dL 70-110 7751606018) CREATININE (test code = 0.84 mg/dL 0.60-1.25 1085337587) TOTAL BILI (test code = 0.5 mg/dL 0.1-1.3 7479313041) CALCIUM (test code = 9.6 mg/dL 8.6-10.6 4487241118) T PROTEIN (test code = 7.7 g/dL 6.3-8.2 1300451005) ALBUMIN (test code = 4.6 g/dL 3.5-5.0 9856478406) ALK PHOS (test code = 59 U/L 34-122 2719024043) ALTv (test code = 27 U/L 5-50 1742-6) AST(SGOT) (test code = 24 U/L 13-40 6240095679) eGFR (test code = mL/min/1.73m2 5384412013) DALE (test code = DALE) Association of [...] tests). Lab Interpretation Abnormal (test code = 01986-2) [facility]30 20:01:48 Test Item Value Reference Range Interpretation Comments LIPASE (test code = 5351069709) 78 U/L 0-220 Lab Interpretation (test code = Normal 03004-2) [facility] WITH [id number] 19:33:44 Test Item Value Reference Range Interpretation Comments WBC (test code = See_Comment [Automated 6690-2) message] The sy stem which generated this [...] RDW-SD (test code = 40.7 fL 38.5-51.6 14971-6) RDW-CV (test code = 12.4 % 12.1-15.4 788-0) PLT (test code = See_Comment [Automated 777-3) message] The sy stem which generated this result transmitted reference range : 150 - 328 10*3/ ?L. The reference r tete was not used to interpret this result as normal/abnormal . MPV (test code = 10.0 fL 9.8-13.0 10687-4) NRBC/100 WBC (test See_Comment [Automat ed code = 4417639184) message] The system which generated this result transmitted reference range : 0.0 - 10.0 /100 WBCs. The refer ence range was not u sed to interpret th is result as normal/abnormal . NRBC x10^3 (test code <0.01 See_Comment [Auto mated = 3396325645) message] The s ystem which generated this result transmitted reference range : 10*3/?L. The reference range was not used to interpret this result as normal/abnormal . GRAN MAT (NEUT) % 77.9 % (test code = 770-8) IMM GRAN % (test code 0.20 % = 5148680268) LYMPH % (test code = 14.1 % 736-9) MONO % (test code = 7.3 % 5905-5) EOS % (test code = 0.4 % 713-8) BASO % (test code = 0.1 % 706-2) GRAN MAT x10^3(ANC) 7.09 10*3/uL 1.99-6.95 H (test code = 9010237780) IMM GRAN x10^3 (test <0.03 0.00-0.06 code = 6806610300) LYMPH x10^3 (test code 1.28 10*3/uL 1.09-3.23 = 731-0) MONO x10^3 (test code 0.66 10*3/uL 0.36-1.02 = 742-7) EOS x10^3 (test code = 0.04 10*3/uL 0.06-0.53 L 711-2) BASO x10^3 (test code <0.03 0.01-0.09 = 704-7) Lab Interpretation Abnormal (test code = 34298-9) [facility]"
--- NOTE | 2022-01-31 20:53 | RAD REPORT ---
EXAM DESCRIPTION: CT - Head Brain Wo Cont - 01/31/2022 8:46 pm CLINICAL HISTORY: HEADACHE COMPARISON: No comparisons TECHNIQUE: All CT scans are performed using dose optimization technique as appropriate and may inclu de automated exposure control or mA/KV adjustment according to patient size. FINDINGS: No intracranial hemorrhage, hydrocephalus or extra-axial fluid collection.No areas of brai n edema or evidence of midline shift. Bilateral maxillary sinus mucosal thickening. The calvarium is intact. IMPRESSION: No acute intracranial abnormality.
[2022-01-31] MEDS ORDERED: KETOROLAC 30 MG/ML INJ ONE (21:48)
[2022-01-31] MEDS ORDERED: DIPHENHYDRAMINE 50 MG/ML VIAL ONE (21:48)
[2022-01-31] MEDS ORDERED: NA CHLORIDE 0.9% 1,000 ML ONE (21:48)
[2022-01-31] MEDS ORDERED: METOCLOPRAMIDE 10 MG/2mL INJ ONE (21:48)
--- NOTE | 2022-01-31 22:48 | EDPHYS ---
Physician Documentation [facility] Name: Jevon Kelly Age: 41 yrs Sex: Male : 1980 Arrival Date: 01/31/2022 Time: 19:05 Bed 6 Private MD: ED Physician Kevan Winn HPI: 01/31 19:48 This 41 yrs old Male presents to ER via Ambulatory with complaints of Headache.pm1 19:48 The patient complains of pain to the left eye, left occipital area and right occipital pm1 area. The patient describes the headache as aching. Onset: The symptoms/episode began/occurred 2 month(s) ago. Associated signs and symptoms: Pertinent negatives: fever, nausea, vomiting. Severity of symptoms: in the emergency department the pain is unchanged. Headache History: Denies prior headaches. The symptoms are alleviated by over the counter pain medication, the symptoms are aggravated by nothing. The patient has not experienced similar symptoms in the past. The patient has been recently seen by a physician: with similar presenting complaints, Patient was evaluated by ophthalmology and told that his left eye is okay. He was instructed to follow-up with neurology. Historical: - Allergies: 20:32 No Known Allergies; ld1 - Home Meds: 20:32 None [Active]; ld1 - PMHx: 20:32 Hypertensive disorder; ld1 - PSHx: 20:32 None; ld1 - Immunization history:: Adult Immunizations up to date, Client reports receiving the 2nd dose of the Covid vaccine. - Social history:: Smoking status: Patient denies any tobacco usage or history of. Patient/guardian denies using alcohol. ROS: 19:48 Constitutional: Negative for fever, chills, and weight loss. pm1 19:48 ENT: Negative for injury, pain, and discharge, Neck: Negative for injury, pain, and swelling, Cardiovascular: Negative for chest pain, palpitations, and edema, Respiratory: Negative for shortness of breath, cough, wheezing, and pleuritic chest pain, Abdomen/GI: Negative for abdominal pain, nausea, vomiting, diarrhea, and constipation. 19:48 MS/Extremity: Negative for injury and deformity, Skin: Negative for injury, rash, and discoloration. 19:48 Eyes: Positive for Pain behind his left eye. 19:48 Neuro: Positive for headache, Negative for numbness, tingling. 19:48 All other systems are negative. Exam: 19:48 Constitutional: This is a well developed, well nourished patient who is awake, alert, pm1 and in no acute distress. 19:48 Skin: Warm, dry with normal turgor. Normal color with no rashes, no lesions, and no evidence of cellulitis. MS/ Extremity: Pulses equal, no cyanosis. Neurovascular intact. Full, normal range of motion. 19:48 Head/face: Noted is no obvious of injury or deformity except tenderness, of the forehead, left occipital area and right occipital area. 19:48 Eyes: Exam is negative for acute changes, Periorbital structures: appear normal, Extraocular movements: intact throughout, Conjunctiva: no acute changes, no injection. 19:48 ENT: Exam is negative for acute changes, Mouth: no acute changes, Lips: normal, moist, Oral mucosa: normal, pink and intact, moist. 19:48 Neck: Exam negative for acute changes. 19:48 Cardiovascular: Exam negative for acute changes, Rate: normal, Rhythm: regular, Pulses: no pulse deficits are appreciated, Heart sounds: normal. 19:48 Respiratory: Exam negative for acute changes, respiratory distress, shortness of breath. 19:48 Neuro: Exam negative for acute changes, Orientation: is normal, Mentation: is normal, Motor: is normal, moves all fours. Vital Signs: 20:29 BP 127 / 101; Pulse 77; Resp 18; Temp 98.3(TE); Pulse Ox 100% ; Weight 99.79 kg; Height ld1 5 ft. 10 in. (180 cm); Pain 8/10; 22:14 BP 123 / 88; Pulse 77; Resp 17; Pulse Ox 97% on R/A; ll3 22:30 BP 119 / 77; Pulse 64; Resp 16; Pulse Ox 98% on R/A; ll3 20:29 Body Mass Index 30.80 (99.79 kg, 180 cm) ld1 MDM: 20:00 Patient medically screened. pm1 22:47 Counseling: I had a detailed discussion with the patient and/or guardian regarding: the pm1 historical points, exam findings, and any diagnostic results supporting the discharge/admit diagnosis, radiology results, the need for outpatient follow up, a family practitioner, to return to the emergency department if symptoms worsen or persist or if there are any questions or concerns that arise at home. ED course: 0/10 pain with medications given in the ER. 22:47 Data reviewed: vital signs. Data interpreted: Pulse oximetry: on room air is 98 %. pm1 Interpretation: normal. 03 19:48 Order name: CT Head Brain wo Cont; Complete Time: 20:58 pm1 01/31 19:48 Order name: IV Saline Lock; Complete Time: 22:12 pm1 Administered Medications: 22:00 Drug: Reglan (metoCLOPramide) 10 mg Route: IVP; Site: right antecubital; ll3 22:56 Follow up: Response: No adverse reaction; Marked relief of symptoms ll3 22:05 Drug: Benadryl (diphenhydrAMINE) 25 mg Route: IVP; Site: right antecubital; ll3 22:56 Follow up: Response: No adverse reaction ll3 22:11 Drug: Ketorolac 30 mg Route: IVP; Site: right antecubital; ll3 22:56 Follow up: Response: No adverse reaction; Marked relief of symptoms ll3 22:11 Drug: NS 0.9% 1000 ml Route: IV; Rate: 1000 ml; Site: right antecubital; ll3 22:55 Follow up: Response: No adverse reaction; Marked relief of symptoms; IV Status: ll3 Completed infusion; IV Intake: 1000ml Disposition: 02/01 04:08 Co-signature as Attending Physician, Kevan Winn DO I agree with the assessment and ms3 plan of care. Disposition Summary: 01/31/22 22:47 Discharge Ordered Location: Home pm1 Problem: new pm1 Symptoms: have improved pm1 Condition: Stable pm1 Diagnosis - Headache pm1 Followup: pm1 - With: Emergency Department - When: As needed - Reason: Worsening of condition Followup: pm1 - With: Private Physician - When: 2 - 3 days - Reason: Recheck today's complaints, Continuance of care, Re-evaluation by your physician Discharge Instructions: - Discharge Summary Sheet pm1 - General Headache Without Cause pm1 - Tension Headache, Adult pm1 Forms: - Medication Reconciliation Form pm1 - Thank You Letter pm1 - Antibiotic Education pm1 - Prescription Opioid Use pm1 Prescriptions: - FIORINAL - take 1 tablet by ORAL route every 4 hours As needed; 20 tablet; Refills: 0, pm1 Product Selection Permitted Signatures: Dispatcher [employer] EDMS James Hloland, PUBLIC AFFAIRS SPECIALIST PUBLIC AFFAIRS SPECIALIST pm1 Kevan Winn DO DO ms3 Kaya Mark, RN RN ld1 Rhett Kellogg RN RN ll3
--- NOTE | 2022-01-31 22:48 | ER ---
Nurse's Notes [facility] Name: Jevon Kelly Age: 41 yrs Sex: Male : 1980 Arrival Date: 01/31/2022 Time: 19:05 Bed 6 Private MD: Diagnosis: Headache Presentation: 01/31 19:56 Chief complaint:. lp1 20:29 Chief complaint: Patient states: on Wednesday I began having a pain in the back of my ld1 neck. C/O rash in nose and yellow discharge. Pt also reports weakness in right arm - hands go to sleep. Pt reports falling and hitting back of head - he does not know if that could be the cause of his pain. Coronavirus screen: At this time, the client does not indicate any symptoms associated with coronavirus-19. Ebola Screen: No symptoms or risks identified at this time. Initial Sepsis Screen: Does the patient meet any 2 criteria? No. Patient's initial sepsis screen is negative. Does the patient have a suspected source of infection? No. Patient's initial sepsis screen is negative. Risk Assessment: Do you want to hurt yourself or someone else? Patient reports no desire to harm self or others. Onset of symptoms was January 31, 2022. 20:29 Method Of Arrival: Ambulatory ld1 20:29 Acuity: CAYLA 3 ld1 Triage Assessment: 20:32 Headache History: Denies prior headaches. General: Appears in no apparent distress. ld1 comfortable, Behavior is calm, cooperative, appropriate for age. Pain: Complains of pain in occipital area and base of the skull Pain does not radiate. Pain currently is 8 out of 10 on a pain scale. Quality of pain is described as throbbing, Pain began suddenly, Is continuous. Neuro: Level of Consciousness is awake, alert, obeys commands, Oriented to person, place, time, situation. Respiratory: Airway is patent Respiratory effort is even, unlabored. 22:14 Pain: Also complains of no other associated symptoms. ll3 Historical: - Allergies: 20:32 No Known Allergies; ld1 - Home Meds: 20:32 None [Active]; ld1 - PMHx: 20:32 Hypertensive disorder; ld1 - PSHx: 20:32 None; ld1 - Immunization history:: Adult Immunizations up to date, Client reports receiving the 2nd dose of the Covid vaccine. - Social history:: Smoking status: Patient denies any tobacco usage or history of. Patient/guardian denies using alcohol. Screenin:12 Abuse screen: Denies threats or abuse. Nutritional screening: No deficits noted. ll3 Tuberculosis screening: No symptoms or risk factors identified. Fall Risk None identified. Assessment: 22:12 General: Appears uncomfortable, Behavior is calm, cooperative. Pain: Complains of pain ll3 in base of the skull and occipital area. Neuro: Level of Consciousness is awake, alert, obeys commands, Oriented to person, place, time, situation, Reports headache occipital area, since Wednesday. Cardiovascular: Patient's skin is warm and dry. Respiratory: Respiratory effort is even, unlabored, Respiratory pattern is regular, symmetrical. Derm: Skin is pink, warm \T\ dry. 22:54 Reassessment: Patient and/or family updated on plan of care and expected duration. Pain ll3 level reassessed. Patient is alert, oriented x 3, equal unlabored respirations, skin warm/dry/pink. Patient denies pain at this time. Patient states feeling better. Patient states symptoms have improved. Vital Signs: 20:29 BP 127 / 101; Pulse 77; Resp 18; Temp 98.3(TE); Pulse Ox 100% ; Weight 99.79 kg; Height ld1 5 ft. 10 in. (180 cm); Pain 8/10; 22:14 BP 123 / 88; Pulse 77; Resp 17; Pulse Ox 97% on R/A; ll3 22:30 BP 119 / 77; Pulse 64; Resp 16; Pulse Ox 98% on R/A; ll3 20:29 Body Mass Index 30.80 (99.79 kg, 180 cm) ld1 ED Course: 19:05 Patient arrived in ED. es 19:41 James Holland NP is PHCP. pm1 19:41 Kevan Winn DO is Attending Physician. pm1 20:32 Triage completed. ld1 20:32 Arm band placed on left wrist. ld1 20:46 CT Head Brain wo Cont In Process Unspecified. EDMS 22:11 Rhett Kellogg, PAUL is Primary Nurse. ll3 22:12 Patient has correct armband on for positive identification. Bed in low position. Call ll3 light in reach. Side rails up X 1. Adult w/ patient. Pulse ox on. NIBP on. 22:12 Inserted saline lock: 22 gauge in right antecubital area, using aseptic technique. ll3 22:55 No provider procedures requiring assistance completed. ll3 23:04 IV discontinued, intact, bleeding controlled, No redness/swelling at site. Pressure ll3 dressing applied. Administered Medications: 22:00 Drug: Reglan (metoCLOPramide) 10 mg Route: IVP; Site: right antecubital; ll3 22:56 Follow up: Response: No adverse reaction; Marked relief of symptoms ll3 22:05 Drug: Benadryl (diphenhydrAMINE) 25 mg Route: IVP; Site: right antecubital; ll3 22:56 Follow up: Response: No adverse reaction ll3 22:11 Drug: Ketorolac 30 mg Route: IVP; Site: right antecubital; ll3 22:56 Follow up: Response: No adverse reaction; Marked relief of symptoms ll3 22:11 Drug: NS 0.9% 1000 ml Route: IV; Rate: 1000 ml; Site: right antecubital; ll3 22:55 Follow up: Response: No adverse reaction; Marked relief of symptoms; IV Status: ll3 Completed infusion; IV Intake: 1000ml Intake: 22:55 IV: 1000ml; Total: 1000ml. ll3 Outcome: 22:47 Discharge ordered by . pm1 23:04 Discharged to home ambulatory, with significant other. ll3 23:04 Condition: stable 23:04 Discharge instructions given to patient, family, Instructed on discharge instructions, follow up and referral plans. medication usage, Demonstrated understanding of instructions, follow-up care, medications, Prescriptions given X 1. 23:04 Patient left the ED. ll3 Signatures: Dispatcher [employer] Heather Motley Laura RN RN lp1 James Holland, PATRICK PLASTERER JOURNEYMAN pm1 Kaya Mark RN RN ld1 Rhett Kellogg RN RN ll3
[2022-01-31 23:10] VITALS: TEMP 98.3
[2022-01-31 23:12] VITALS: BP 119/77; O2SAT 98
== END 2022-01-31 23:04 | disposition home or self-care (01) ==
LOC: ER 19:02
DX: R51.9 Headache, unspecified (principal); H57.12 Ocular pain, left eye; I10 Essential (primary) hypertension
CPT/HCPCS: 70450; 96361; 96374; 96375; 99284; J1200; J2765; J7030